=== PATIENT | male | born 1990 | race Caucasian/White ===

== ENCOUNTER 2024-11-07 09:52 | Emergency (ER) | payer MEDICAID, OTHER ==
[~2024-11-07] VITALS: Ht 177.8 cm; Wt 109.8 kg
[2024-11-07 09:53] VITALS: BP 130/77; PULSE 76; RESP 18; TEMP 97.8; O2SAT 97
[2024-11-07] MEDS ORDERED: BUPR8MIS SL (10:08)
--- NOTE | 2024-11-07 10:22 | ED.PDOC ---
History of Present Illness HPI Comments This is a 33-year-old male who comes in with chief complaint of needing Suboxone. The patient states that he is currently on Suboxone and did get his last dose in [place] but he does not have a primary care doctor new ran out a the medication. He states that he is now having cold sweats is willing feeling somewhat anxious. The patient has no chest pain or shortness for breath. The patient was able to ambulate into the emergency department's without any difficulty. Chief Complaint: Withdrawal Time Seen by MD: 09:59 Reviewed Notes: Nurses Notes, Medications, Allergies (Allergies listed above) Allergies: Coded Allergies: Acetylcysteine (Verified Allergy, Unknown, 11/07/24) Home Meds Active Scripts Buprenorphine Hcl-Naloxone Hcl (Suboxone) 1 Mis Mis, 1 STRIP SL DAILY, #7 STRIP Prov:JENNIFER KAMINSKI MD 11/07/24 Information Source: Patient Mode of Arrival: Ambulatory Severity: Mild Timing: Days Duration: Since onset Prehospital treatment: None Associated signs and symptoms Cold sweats and generalized anxiety Past Medical History PAST MEDICAL HISTORY: Asthma Surgical History: Denies all surgeries Family History Family History: No family hx of Cancer, No family hx of DM, No family hx of Heart marilynn Social History Smoker: Non-Smoker Alcohol: Denies ETOH Use Drugs: Other (History of heroin use) Lives In: Home Constitutional: reports: others (Cold sweats); denies: chills, diaphoresis, fatigue, fever, malaise, sweats, weakness EENTM: denies: blurred vision, double vision, ear bleeding, ear discharge, ear drainage, ear pain, ear ringing, eye pain, eye redness, hearing loss, mouth pain, mouth swelling, nasal discharge, nose bleeding, nose congestion, nose pain, photophobia, tearing, throat pain, throat swelling, voice changes, others Respiratory: denies: cough, hemoptysis, orthopnea, SOB at rest, shortness of breath, SOB with excertion, stridor, wheezing, others Cardiovascular: denies: chest pain, dizzy spells, diaphoresis, Dyspnea on exertion, edema, irregular heart beat, left arm pain, lightheadedness, pal pitations, PND, syncope, others Gastrointestinal: denies: abdomen distended, abdominal pain, blood streaked bowels, constipated, diarrhea, dysphagia, difficulty swallowing, hematemesis, melena, nausea, poor appetite, poor fluid intake, rectal bleeding, rectal pain, vomiting, others Genitourinary: denies: burning, dysuria, flank pain, frequency, hematuria, incontinence, penile discharge, penile sore, pain, testicle pain, testicle swelling, urgency, others Neurological: denies: dizziness, fainting, headache, left sided numbness, left sided weakness, numbness, paresthesia, pre-existing deficit, right sided numbness, right sided weakness, seizure, speech problems, tingling, tremors, weakness, others Musculoskeletal: denies: back pain, gout, joint pain, joint swelling, muscle pain, muscle stiffness, neck pain, others Integumetry: denies: bruises, change in color, change in hair/nails, dryness, laceration, lesions, lumps, rash, wounds, others Allergic/Immunocompromised: denies: Difficulty Healing, Frequent Infections, Hives, Itching, others Hematologic/Lymphatic: denies: anemia, blood clots, easy bleeding, easy bru ising, swollen glands, others Endocrine: denies: excessive hunger, excessive sweating, excessive thirst, e xcessive urination, flushing, intolerance to cold, intolerance to heat, unexplained weight gain, unexplained weight loss, others Psychiatric: denies: anxiety, bipolar disorder, depression, hopeless, panic disorder, schizophrenia, sleepless, suicidal, others Physical Exam General Appearance: No Apparent Distress HEENT: Normal ENT Inspection, Pharynx Normal, TMs Normal Neck: Full Range of Motion, Non-Tender, Normal, Normal Inspection Respiratory: Chest Non-Tender, Lungs Clear, No Accessory Muscle Use, No Respiratory Distress, Normal Breath Sounds Cardiovascular: No Edema, No JVD, No Murmur, No Gallop, Normal Peripheral Pulses, Regular Rate/Rhythm Breast Exam: Deferred Gastrointestinal: No Organomegaly, Non Tender, No Pulsatile Mass, Normal Bowel Sounds, Soft Genitalia: Deferred Pelvic: Deferred Rectal: Deferred Extremities: No calf tenderness, Normal capillary refill, Normal inspection, Normal range of motion, Non-tender, No pedal edema Musculoskeletal : Apperance: Normal Neurologic: Alert, supervisor cloth winding II-XII nml as Tested, No Motor Deficits, Normal Affect, Normal Mood, No Sensory Deficits Cerebellar Function: Normal Reflexes: Normal Skin: Dry, Normal Color, Warm Lymphatic: No Adenopathy Was a procedure done? Was a procedure done?: No Differential Dx Considerations may include: Cold sweats, anxiety, generalized weakness, withdrawal symptoms X-Ray, Labs, Meds, VS Vital Signs Date Time Temp Pulse Resp B/P (MAP) Pulse Ox O2 Delivery O2 Flow Rate FiO2 11/07/24 09:53 97.8 76 18 130/77 97 97.8 Patient was given his prescription and the patient is being discharged The patient will follow up with the primary care doctor. Time of 1ST Reevaluation: 10:21 Reevaluation 1ST: Unchanged Patient Education/Counseling: Diagnosis, Treatment, Prognosis, Need For Follow Up Family Education/Counseling: No Family Present SEPSIS Sepsis Screen Date sepsis recognized/suspect: Nov 07, 2024 Time Sepsis recognized/suspect: 954 Recent Procedure: No On Antibiotic Therapy: No Respiratory Rate >20: No Heart Rate >90: No Temp<36 C (96.8 F) or >38.3 C: No SBP <90 or MAP <65 mmHG: No New Acute Mental Status Change: No Is the patient on CPAP, BIPAP,: No Vital Signs Date Time Temp Pulse Resp B/P (MAP) Pulse Ox O2 Delivery O2 Flow Rate FiO2 11/07/24 09:53 97.8 76 18 130/77 97 97.8 Departure 1 Departure Time of Disposition: 10:21 Impression: Primary Impression: Cold sweat Additional Impression: Withdrawal symptoms, drug or narcotic Qualified Codes: F11.93 - Opioid use, unspecified with withdrawal Disposition: 01 HOME / SELF CARE / HOMELESS Condition: Fair e-Prescriptions Buprenorphine Hcl-Naloxone Hcl (Suboxone) 1 Mis Mis 1 STRIP SL DAILY, #7 STRIP Prov: JENNIFER KAMINSKI MD 11/07/24 Discharged With: Self Critical Care Note Critical Care Time?: No Stability Stability form required: No Heart Score Heart Score: Heart Score Response (Comments) Value History N/A 0 EKG N/A 0 Age N/A 0 Risk Factors N/A 0 Troponin N/A 0 Total 0 JENNIFER KAMINSKI MD Nov 07, 2024 10:22
== END 2024-11-07 11:18 | disposition home or self-care (01) ==
LOC: ER 09:52
DX: F11.93 Opioid use, unspecified with withdrawal (principal); R61 Generalized hyperhidrosis; J45.909 Unspecified asthma, uncomplicated; Z79.899 Other long term (current) drug therapy